=== PATIENT | female | born 1960 | race Caucasian/White ===

== ENCOUNTER → 2021-07-26 09:39 | Outpatient (BNVA) | payer MEDICAID, SELFPAY | PROVIDERS: Family Provider Nurse Practitioner Family; PCP Nurse Practitioner Family; Visit Provider Internal Medicine | DX: M25.50 Pain in unspecified joint (principal); R76.8 Other specified abnormal immunological findings in serum; F17.210 Nicotine dependence, cigarettes, uncomplicated | CPT/HCPCS: 99204 ==

== ENCOUNTER 2021-07-26 11:30 | Outpatient (CLI) | payer MEDICAID, SELFPAY ==
--- NOTE | 2021-07-26 11:42 | XR_ITS ---
WS: [email or web address] XR hand LT 2V [id number] REASON FOR EXAM: R76.8 - Other specified abnormal immunological findings i... FINDINGS: No fracture or focal bone lesion. Mild to moderate narrowing of the joint spaces with subchondral sclerosis and small marginal osteophy amy in the DIP and PIP joints of the fingers. Similar but more severe arthropathic change in the carp al metacarpal and the metacarpal phalangeal joint of the left thumb. Lateral subluxation at the metacarpal phalangeal joint of the thumb. No erosions or periosteal reaction. No soft tissue abnormality. XR/XR hand LT 2V [id number] IMPRESSION: Osteoarthritis of the left hand.
--- NOTE | 2021-07-26 11:42 | XR_ITS ---
WS: [email or web address] XR hand RT 2V [id number] REASON FOR EXAM: R76.8 - Other specified abnormal immunological findings i... FINDINGS: No fracture or focal bone lesion. Mild narrowing of the DIP and PIP joints of the right fingers with subchondral sclerosis and small ma rginal osteophytes. Similar arthropathy in the carpal metacarpal joint and the metacarpal phalangeal joint of the right thumb. No erosions or periosteal reaction. No soft tissue abnormality. XR/XR hand RT 2V [id number] IMPRESSION: Osteoarthritis right hand.
--- NOTE | 2021-07-26 11:42 | XR_ITS ---
WS: [email or web address] XR sacroiliac jts m 3V [id number] REASON FOR EXAM: L40.9 - Psoriasis, unspecified FINDINGS: No fracture or focal bone lesion. Sacroiliac joints are intact without erosions or areas of bridging or fusion. Minimal periarticular s clerosis. Moderate osteoarthritis of both hip joints. XR/XR sacroiliac jts m 3V [id number] IMPRESSION: No definite sacroiliitis.
[2021-07-26 12:58] LABS: Basophils # 0.1 10^3/uL (0.0-0.1); Basophils % 0.6 %; Eosinophils # 0.4 10^3/uL (0.0-0.8); Eosinophils % 4.6 %; Hemoglobin 12.8 g/dL (11.5-15.3); Lymphocytes # 3.7 10^3/uL (0.8-4.8); Lymphocytes % 39.4 %; Mean Corpuscular HGB Conc 32.8 g/dL (30.0-36.0); Mean Corpuscular Hemoglobin 30.3 pg (28.0-34.0); Mean Corpuscular Volume 92.2 fl (81-99); Mean Platelet Volume 10.2 fL (7.4-10.4); Monocytes # 0.5 10^3/uL (0.2-0.9); Monocytes % 5.3 %; Neutrophils # 4.63 10^3/uL (1.8-7.7); Neutrophils % 49.9 %; Nucleated Red Blood Cells % 0 %; Platelet Count 364 10^3/cmm (130-400); Red Blood Count 4.23 10^6/uL (4.1-5.3); Red Cell Distribution Width 12.4 % (12.1-15.1); White Blood Count 9.3 10^3/uL (4.0-10.0)
[2021-07-26 13:21] LABS: Alanine Aminotransferase 26 U/L (0-33); Albumin Level 4.3 g/dL (3.5-5.2); Alkaline Phosphatase 131 IU/L (35-105); Aspartate Amino Transferase 33 U/L (0-32); Blood Urea Nitrogen 10 mg/dL (8-23); Calcium 8.6 mg/dL (8.5-10.5); Carbon Dioxide 25 mmol/L (22-29); Chloride 103 mmol/L (98-107); Globulin 2.5 g/dL (1.3-4.6); Glomerular Filtration Rate 85.4 mL/min (90-130); Glucose 95 mg/dL (65-115); Osmolality Calculated 287 mOsm/kg (285-295); Sodium 139 mmol/L (136-145); Total Bilirubin 0.3 mg/dL (0.15-1.2); Total Protein 6.8 g/dL (6.6-8.7)
[2021-07-26 13:35] LABS: Erythrocyte Sedimentation Rate 19 mm/hr (0-15)
[2021-07-26 13:56] LABS: Hepatitis B Core AB, Total Non-Reactive (Nonreactive); Hepatitis B Surface Antigen Non-Reactive (Nonreactive); Hepatitis C Virus Antibody Non-Reactive (Nonreactive)
[2021-07-27 11:38] LABS: COMPLEMENT COMPONENT C3C 176 mg/dL (83-193); COMPLEMENT COMPONENT C4C 28 mg/dL (15-57)
[2021-07-27 12:57] LABS: CENTROMERE B ANTIBODY <1.0 NEG AI (<1.0 NEG); JO-1 ANTIBODY <1.0 NEG AI (<1.0 NEG); RNP ANTIBODY <1.0 NEG AI (<1.0 NEG); SCL-70 ANTIBODY 2.7 POS AI (<1.0 NEG); SJOGREN'S ANTIBODY (SS-A) <1.0 NEG AI (<1.0 NEG); SM ANTIBODY <1.0 NEG AI (<1.0 NEG); SS-B <1.0 NEG AI (<1.0 NEG)
[2021-07-27 14:43] LABS: THYROID PEROXIDASE ANTIBODIES 10 IU/mL (<9)
[2021-07-28 12:38] LABS: COMPLEMENT, TOTAL (CH50) >60 U/mL (31-60)
[2021-07-28 14:47] LABS: Quantiferon Mitogen >10.00 IU/mL; Quantiferon Nil 0.02 IU/mL; Quantiferon Plus TB1 0.01 IU/mL; Quantiferon Plus TB2 0.01 IU/mL; Quantiferon TB Gold NEGATIVE (NEGATIVE)
[2021-07-28 16:06] LABS: ANA PATTERN Nuclear, Speckled; ANA SCREEN, IFA POSITIVE (NEGATIVE); ANA TITER 1:40 titer
[2021-07-29 11:22] LABS: DNA AB (DS) CRITHIDIA,IFA NEGATIVE (NEGATIVE)
== END 2021-07-26 11:31 | disposition home or self-care (01) ==
LOC: RAD 11:36
PROVIDERS: Visit Provider Internal Medicine
DX: R76.8 Other specified abnormal immunological findings in serum (principal); L40.9 Psoriasis, unspecified; Z11.59 Encounter for screening for other viral diseases; Z11.1 Encounter for screening for respiratory tuberculosis
CPT/HCPCS: 36415; 72202; 73120; 80053; 85025; 85651; 86160; 86162; 86235; 86255; 86376; 86480; 86704; 86803; 87340

== ENCOUNTER → 2021-08-09 13:27 | Outpatient (BNVA) | payer MEDICAID, SELFPAY | PROVIDERS: Visit Provider Internal Medicine | DX: R76.8 Other specified abnormal immunological findings in serum (principal); M54.2 Cervicalgia; M25.50 Pain in unspecified joint; R06.00 Dyspnea, unspecified; F17.210 Nicotine dependence, cigarettes, uncomplicated | CPT/HCPCS: 99214 ==

== ENCOUNTER 2021-11-08 14:11 | Outpatient (CLI) | payer MEDICAID, SELFPAY ==
--- NOTE | 2021-11-08 14:18 | XR_ITS ---
WS: [email or web address] Lateral views of cervical spine in the flexion, extension and neutral positions. 11/08/2021 Clinical Data: M25.50 - Pain in unspecified joint Comparison: None. Findings: There is anterior osteophyte formation at C4, C5, C6 and C7. There is a subluxation of C4 on C5 of 0. 2 cm. There is no prevertebral soft tissue swelling. On flexion and extension there is no limitation of motion or change in the subluxation. No compression fractures are seen. XR/XR cervical spine fl/ex [id number] Impression: 1. Anterior osteophytes C4-C7. 2. 0.2 cm subluxation of C4 on C5. 3. Negative for limitation of motion or change in the subluxation on flexion or extension.
--- NOTE | 2021-11-08 14:26 | MM_ITS ---
WS: [id number] BILATERAL 3D TOMOSYNTHESIS DIGITAL SCREENING MAMMOGRAPHY WITH CAD CLINICAL INFORMATION: SCREENING HISTORY: Screening mammogram. No current complaints. COMPARISON: None. TECHNIQUE: Bilateral CC and MLO views. FINDINGS: Scattered fibroglandular densities bilaterally. Punctate and lucent centered calcifications. Numerous tiny scattered punctate calcifications RIGHT breast. A few clustered calcifications. No suspicious f ocal mass, asymmetry, calcifications, or architectural distortion. No evidence of malignancy. MM/[place] [id number] IMPRESSION: BI-RADS: 2-Benign FOLLOW UP: 1 Year Follow-up Recommend return to annual screening mammography.
== END 2021-11-08 14:12 | disposition home or self-care (01) ==
LOC: RADSHAW 14:13
PROVIDERS: Visit Provider Family Medicine
DX: Z12.31 Encounter for screening mammogram for malignant neoplasm of breast (principal); M25.50 Pain in unspecified joint; M54.2 Cervicalgia; R76.8 Other specified abnormal immunological findings in serum; Z79.899 Other long term (current) drug therapy; M25.78 Osteophyte, vertebrae
CPT/HCPCS: 72040; 77063; 77067

== ENCOUNTER 2021-11-13 12:12 | Outpatient (CLI) | payer MEDICAID, SELFPAY ==
[2021-11-13 12:59] LABS: Basophils # 0.1 10^3/uL (0.0-0.1); Basophils % 0.7 %; Eosinophils # 0.3 10^3/uL (0.0-0.8); Eosinophils % 4.5 %; Hematocrit 40.2 % (37.0-47.0); Hemoglobin 12.8 g/dL (11.5-15.3); Lymphocytes # 2.3 10^3/uL (0.8-4.8); Lymphocytes % 33.7 %; Mean Corpuscular HGB Conc 31.8 g/dL (30.0-36.0); Mean Corpuscular Hemoglobin 29.4 pg (28.0-34.0); Mean Corpuscular Volume 92.2 fl (81-99); Mean Platelet Volume 9.8 fL (7.4-10.4); Monocytes # 0.5 10^3/uL (0.2-0.9); Monocytes % 6.8 %; Neutrophils # 3.63 10^3/uL (1.8-7.7); Nucleated Red Blood Cells % 0 %; Platelet Count 367 10^3/cmm (130-400); Red Blood Count 4.36 10^6/uL (4.1-5.3); Red Cell Distribution Width 12.4 % (12.1-15.1); White Blood Count 6.7 10^3/uL (4.0-10.0)
[2021-11-13 13:18] LABS: Erythrocyte Sedimentation Rate 18 mm/hr (0-15)
[2021-11-13 13:40] LABS: Alanine Aminotransferase 6 U/L (0-33); Alkaline Phosphatase 89 IU/L (35-105); Anion Gap 17.8 (5-19); Aspartate Amino Transferase 20 U/L (0-32); Blood Urea Nitrogen 11 mg/dL (8-23); C Reactive Protein 8.8 mg/L (0.0-4.9); Calcium 8.5 mg/dL (8.5-10.5); Carbon Dioxide 24 mmol/L (22-29); Chloride 105 mmol/L (98-107); Globulin 2.6 g/dL (1.3-4.6); Glomerular Filtration Rate 72.9 mL/min (90-130); Glucose 98 mg/dL (65-115); Osmolality Calculated 293 mOsm/kg (285-295); Potassium 4.8 mmol/L (3.5-5.1); Sodium 142 mmol/L (136-145); Total Bilirubin 0.2 mg/dL (0.15-1.2); Total Protein 6.6 g/dL (6.6-8.7)
== END 2021-11-13 12:13 | disposition home or self-care (01) ==
PROVIDERS: Visit Provider Internal Medicine
DX: M54.2 Cervicalgia; R76.8 Other specified abnormal immunological findings in serum; Z79.899 Other long term (current) drug therapy; M79.643 Pain in unspecified hand; F17.210 Nicotine dependence, cigarettes, uncomplicated
CPT/HCPCS: 80053; 85025; 85651; 86140; 99213; 99214

== ENCOUNTER 2023-12-20 20:55 | Emergency (ER) | payer MEDICAID, SELFPAY ==
[2023-12-20 21:09] VITALS: BP 154/77; PULSE 64; RESP 18; TEMP 36.6; O2SAT 98; BMI 32.1
--- NOTE | 2023-12-20 21:56 | CTR_ITS ---
PROCEDURE INFORMATION: Exam: CT Neck With Contrast Exam date and time: 12/20/2023 11:08 PM Age: 63 years old Clinical indication: Neck pain and other: RT ear pain; Patient HX: C/O RT sided ear pain that radiates to base of occiput and neck; Additional info: Left posterior ear pain/left neck pain TECHNIQUE: Imaging protocol: Computed tomography of the neck with contrast. Radiation optimization: All CT scans at this facility use at least one of these dose optimization techniques: automated exposure control; mA and/or kV adjustment per patient size (includes targeted exams where dose is matched to clinical indication); or iterative reconstruction. Contrast material: OMNI 350; Contrast volume: 100 ml; Contrast route: INTRAVENOUS (IV); COMPARISON: CR XR cervical spine fl/ex [id number] 11/08/2021 2:24 PM RADIATION DOSE METRICS: Total DLP (mGy-cm): 325.03 FINDINGS: Brain: Partially imaged CSF density at the posteromedial aspect of the left lobe of the cerebellum is most compatible with an arachnoid cyst. Salivary glands: Salivary gland size is within normal limits of variation. Pharynx: Grossly unremarkable. No significant tonsillar enlargement. Prevertebral and retropharyngeal spaces: Grossly unremarkable. Larynx: Grossly unremarkable. Epiglottis is normal. Thyroid: No enlarged or calcified nodules. Trachea: Visualized trachea is unremarkable. Lungs: Unremarkable as visualized. Lymph nodes: By size criteria, no radiographically significant lymphadenopathy is identified. Vasculature: Atheromatous changes at the carotid bulbs (right greater than left) appears to result in mild (less than 50%) stenosis bilaterally. Bones/joints: No acute fracture. Cervical spondylosis resulting in up to moderate to severe stenosis of the neural foramina and minimal spinal canal stenosis, most pronounced at C5-C6. Soft tissues: Grossly unremarkable. CT/CT neck w con* [id number] IMPRESSION: 1. No acute findings. 2. Cervical spondylosis and other chronic/incidental findings as described above.
--- NOTE | 2023-12-20 22:00 | ED_ITS ---
HPI - Ear Problem 2 General: Chief complaint: Ear Stated complaint: EAR PAIN Time Seen by Provider: 12/20/23 21:16 Source: patient Mode of arrival: ambulatory Limitations: no limitations History of Present Illness: Patient is a 63-year-old female who presents to the emergency department complaining of left posterior ear pain onset 4 hours. Patient states she woke from a nap at approximately 1800 today, when she had the sudden onset of pain. It has been intermittent since onset, though she states that episodes are starting to become longer in duration. She initially was seen for the pain in [place] emergency department, states she was just given a shot of Toradol and left AMA as they were not seeing her quick enough. She denies any recent sinus infections, drainage from her ear, fevers, nausea or vomiting, or other symptoms at this time. She does note that the pain is starting to radiate down into her left neck. She has never had this pain before in the past. No history of allergies reported. MD Complaint: other (Posterior ear pain) Location: left ear Duration: intermittent Severity: severe Relieving factors: nothing Exacerbating factors: nothing Discharge from ear: no Associated symptoms: Reports neck pain; Denies fever(s) or headache(s) Review of Systems 2 General: Reports: 10 or more systems reviewed and unremarkable except in HPI and below Const: Denies: fever(s), chills or fatigue Eyes: Denies: change in vision ENMT: Reports: other (Left posterior ear pain); Denies: throat pain, ear discharge or nasal discharge Card: Denies: chest pain, palpitations, swelling of feet/ankles or lightheadedness Resp: Denies: dyspnea, productive cough or wheezing GI: Denies: abdominal pain, nausea, vomiting, diarrhea or constipation : Denies: flank pain, difficulty voiding, dysuria or urinary frequency Musc: Reports: neck pain; Denies: back pain or joint pain Skin/Breast: Denies: rash Neuro: Denies: headache(s), numbness in extremities or weakness in extremities PFSH ED 2 PFSH: Medical History Cervicalgia Family History Father Cancer Diabetes Hypertension Heart attack Rheumatoid arthritis Grandfather Cancer Diabetes Grandmother Diabetes Brother Diabetes Hypertension Heart attack Brother Diabetes Brother Diabetes Sister Diabetes Mother Hyperlipidemia Hypertension Family/Other Rheumatoid arthritis Denies family history of Lupus Stroke Social History Smoking and tobacco/nicotine status: current every day tobacco/nicotine user cigarettes Alcohol intake: former Physical Exam 2 Const: COMMON NORMALS: no acute distress, patient oriented x3 and no limitations GENERAL APPEARANCE: cooperative, comfortable and well developed ORIENTATION/CONSCIOUSNESS: Yes awake, Yes oriented to person, Yes oriented to place and Yes oriented to time HENMT: COMMON NORMALS: normocephalic, atraumatic, hearing grossly normal bilaterally, external ears normal, EAC's normal, TM's normal bilaterally, Normal external nose present and Normal nasal mucous membranes and turbinates present HEAD & SCALP: normocephalic and atraumatic FACE & SINUS: normal facial exam, sinuses nontender and face symmetric NOSE: Normal external nose present and Normal nasal mucous membranes and turbinates present EXTERNAL EAR: Yes external ears normal, Yes mastoid abnormal (Left mastoid tender to palpation) and Yes no periauricular adenopathy EXTERNAL AUDITORY CANAL: EAC's normal TYMPANIC MEMBRANE: TM's normal bilaterally MOUTH: Normal oral and palatal mucosa present THROAT: posterior oropharynx normal Eye: COMMON NORMALS: Equal, round and reactive pupils present, EOMs intact bilaterally and conjunctivae normal CONJUNCTIVA: Yes conjunctivae normal P UPIL: Yes Equal, round and reactive pupils present Neck/C-Spine: COMMON NORMALS: full ROM and no lymphadenopathy OTHER: Left lateral neck tender to palpation along the SCM Resp: COMMON NORMALS: normal respiratory effort, No retractions, No use of accessory muscles and clear to auscultation bilaterally AUSCULTATION: clear to auscultation bilaterally Cardio: COMMON NORMALS: regular rate, regular rhythm, No clicks present (Cardio), No murmurs present (Cardio) and No rub (Cardio) RATE: regular rate RHYTHM: regular rhythm Extremity: COMMON NORMALS: normal to inspection, full ROM and capillary refill normal Neuro: COMMON NORMALS: patient oriented x3, moves all extremities, no focal motor deficits and no sensory deficits noted SENSORIUM/ORIENTATION: Yes oriented to person, Yes oriented to place and Yes oriented to time Psych: COMMON NORMALS: mental status grossly normal and Normal thought process present THOUGHT PROCESS: Normal thought process present Skin: COMMON NORMALS: no rashes or lesions noted GENERAL SKIN EXAM: no rashes or lesions noted Course 2 Vital Signs: Vital signs: Vital Signs Temperature 97.9 F 12/20/23 21:09 Pulse Rate 64 12/20/23 21:09 Respiratory Rate 18 12/20/23 21:09 Blood Pressure 154/77 12/20/23 21:09 Pulse Oximetry 98 12/20/23 21:09 Oxygen Delivery Me thod Room Air 12/20/23 21:09 MDM - Ear Medical Decision Making Patient presented for acute onset of left posterior ear pain. Initially seen at [facility] but left because she was not being seen fast enough. She arrives stating that the pain is significantly worsening, however her vitals unremarkable and her condition has remained stable throughout the ED course. However, she did demonstrate some tenderness to palpation about the mastoid, so a neck CT was ordered to rule this out. She did have some tenderness to palpation about the left lateral neck as well. At this time I believe patient's pain likely muscular in nature, potentially a cervical strain versus myositis. She does note relief of the pain after receiving steroid shot, will send home prescription for prednisone as well as muscle relaxer. She will follow-up with primary care with any further complaints, and return precautions were given. Patient will take Tylenol/ibuprofen at home for pain. Lab Data 12/20/23 22:24 12/20/23 22:[address] 12/20/23 21:56 IMPRESSION: 1. No acute findings. 2. Cervical spondylosis and other chronic/incidental findings as described above. Laboratory Results WBC 7.99 10^3/uL (3.29-11.43) 12/20/23 22:24 RBC 4.08 10^6/uL (3.85-5.65) 12/20/23 22:24 Hgb 11.80 g/dL (11.27-16.99) 12/20/23 22:24 Hct 37.2 % (36-47) 12/20/23 22:24 MCV 91.2 fl (85-98) 12/20/23 22:24 MCH 28.9 pg (27-33) 12/20/23 22: MCHC 31.7 g/dL (30-55) 12/20/23 22:24 RDW 13.4 % (12.1-15.1) 12/20/23 22:24 Plt Count 370 10^3/cmm (157-399) 12/20/23 22:24 MPV 10.2 fL (7.4-10.4) 12/20/23 22:24 Neut % (Auto) 43.7 % 12/20/23 22:24 Lymph % (Auto) 43.2 % 12/20/23 22:24 [place] % (Auto) 6.4 % 12/20/23 22:24 Eos % (Auto) 5.6 % 12/20/23 22:24 Baso % (Auto) 0.8 % 12/20/23 22:24 Neut # (Auto) 3.50 10^3/uL (1.8-7.7) 12/20/23 22:24 Lymph # (Auto) 3.5 10^3/uL (0.8-4.8) 12/20/23 22:24 [place] # (Auto) 0.5 10^3/uL (0.2-0.9) 12/20/23 22:24 Eos # (Auto) 0.5 10^3/uL (0.0-0.8) 12/20/23 22:24 Baso # (Auto) 0.1 10^3/uL (0.0-0.1) 12/20/23 22:24 Nucleated RBC % (auto) 0 % 12/20/23 22:24 Nucleated RBCs # 0.0 /100WBC 12/20/23 22:24 Sodium 140 mmol/L (136-145) 12/20/23 22:24 Potassium 4.2 mmol/L (3.5-5.1) 12/20/23 22:24 Chloride 105 mmol/L (98-107) 12/20/23 22:24 Carbon Dioxide 26 mmol/L (22-29) 12/20/23 22:24 Anion Gap 13.2 (5-19) 12/20/23 22:24 BUN 11 mg/dL (8-23) 12/20/23 22:24 Creatinine 0.7 mg/dL (0.5-0.9) 12/20/23 22:24 GFR Calculation 84.5 mL/min (90-130) L 12/20/23 22:24 Glucose 98 mg/dL (65-115) 12/20/23 22:24 Calculated Osmolality 289 mOsm/kg (285-295) 12/20/23 22:24 Calcium 9.0 mg/dL (8.5-10.5) 12/20/23 22:24 Total Bilirubin 0.2 mg/dL (0.15-1.2) 12/20/23 22:24 AST 26 U/L (0-32) 12/20/23 22:24 ALT 9 U/L (0-33) 12/20/23 22:24 Alkaline Phosphatase 97 U/L (35-105) 12/20/23 22:24 Total Protein 6.9 g/dL (6.6-8.7) 12/20/23 22:24 Albumin 3.9 g/dL (3.5-5.2) 12/20/23 22:24 Globulin 3.0 g/dL (1.3-4.6) 12/20/23 22:24 All radiology interpretation(s) finalized by discharge Discharge Plan Discharge Patient Disposition: Home Clinical Impression: Neck strain Qualifiers: Encounter type: initial encounter Qualified Code(s): S16.1XXA - Strain of muscle, fascia and tendon at neck level, initial encounter Condition: Stable Prescriptions: New methocarbamol 750 mg tablet 750 mg PO Q8H 5 Days Qty: 15 0RF prednisone 20 mg tablet 60 mg PO ONCE 5 Days Qty: 15 0RF No Action atenolol 50 mg tablet 50 mg PO BID amlodipine 5 mg tablet 5 mg PO DAILY Rx Instructions: 0.5-1 tab daily rosuvastatin 20 mg tablet 20 mg PO DAILY acetaminophen [Tylenol Arthritis Pain] 650 mg tablet extended release 1,300 mg PO DAILY ascorbic acid (vitamin C) 1,000 mg tablet 1 g PO DAILY vitamin B complex [B Complex-Vitamin B12] Tablet 1 tab PO DAILY diclofenac sodium [Voltaren Arthritis Pain] 1 % gel 4 g topical QID Qty: 100 2RF Rx Instructions: apply to single knee, ankle, foot; for foot includes sole/toes/top of foot meloxicam 15 mg tablet 15 mg PO DAILY Qty: 30 2RF hydroxychloroquine 200 mg tablet 200 mg PO BID Qty: 60 3RF Discharge Orders: Discharge ED (Routine); Ordered 12/21/23 Ordered By: Stanley Phelan Discharge Diet: Usual diet Discharge Activity: Increase activity as tolerated Patient Instructions: Cervical Strain (ED) Activity Restrictions/Additional Instructions: Take medications as prescribed. Gentle range of motion as tolerated. Ice to the area for added relief. Tylenol/ibuprofen at home for pain. Follow-up with your primary care provider. Coding Level of Care Code ED [facility] Professional for Lety Negrete
[2023-12-20] MEDS: HYDROcodone-acetaminophen 7.5-325 mg Tablet 1 TAB PO (22:05)
[2023-12-20] MEDS: dexamethasone 10 mg/mL INJ IVP (22:10)
[2023-12-20 22:32] LABS: Basophils # 0.1 10^3/uL (0.0-0.1); Basophils % 0.8 %; Eosinophils # 0.5 10^3/uL (0.0-0.8); Eosinophils % 5.6 %; Hematocrit 37.2 % (36-47); Lymphocytes # 3.5 10^3/uL (0.8-4.8); Lymphocytes % 43.2 %; Mean Corpuscular HGB Conc 31.7 g/dL (30-55); Mean Corpuscular Hemoglobin 28.9 pg (27-33); Mean Corpuscular Volume 91.2 fl (85-98); Mean Platelet Volume 10.2 fL (7.4-10.4); Monocytes # 0.5 10^3/uL (0.2-0.9); Monocytes % 6.4 %; Neutrophils % 43.7 %; Nucleated Red Blood Cells % 0 %; Platelet Count 370 10^3/cmm (157-399); Red Blood Count 4.08 10^6/uL (3.85-5.65); Red Cell Distribution Width 13.4 % (12.1-15.1); White Blood Count 7.99 10^3/uL (3.29-11.43)
[2023-12-20 22:52] LABS: Alanine Aminotransferase 9 U/L (0-33); Albumin Level 3.9 g/dL (3.5-5.2); Alkaline Phosphatase 97 U/L (35-105); Anion Gap 13.2 (5-19); Aspartate Amino Transferase 26 U/L (0-32); Blood Urea Nitrogen 11 mg/dL (8-23); Carbon Dioxide 26 mmol/L (22-29); Chloride 105 mmol/L (98-107); Glomerular Filtration Rate 84.5 mL/min (90-130); Glucose 98 mg/dL (65-115); Osmolality Calculated 289 mOsm/kg (285-295); Potassium 4.2 mmol/L (3.5-5.1); Sodium 140 mmol/L (136-145); Total Bilirubin 0.2 mg/dL (0.15-1.2); Total Protein 6.9 g/dL (6.6-8.7)
[2023-12-20] MEDS: iohexol 350 mg/mL 500 mL Btl (per mL) IV (23:10)
[2023-12-21 00:40] VITALS: BP 162/84; PULSE 63; O2SAT 96
[2023-12-21 00:44] VITALS: BP 162/84; PULSE 63; O2SAT 96
== END 2023-12-21 00:44 | disposition home or self-care (01) ==
PROVIDERS: Emergency Provider Physician Assistant
DX: S16.1XXA Strain of muscle, fascia and tendon at neck level, initial encounter (principal); F17.210 Nicotine dependence, cigarettes, uncomplicated; X58.XXXA Exposure to other specified factors, initial encounter
CPT/HCPCS: 36415; 70491; 80053; 85025; 96374; 99285; J1100; Q9967

== ENCOUNTER 2024-06-04 15:05 | Outpatient (CLI) | payer MEDICAID, SELFPAY ==
--- NOTE | 2024-06-04 15:15 | MR_ITS ---
WS: [email or web address] MRI CERVICAL SPINE with and without contrast HISTORY: M48.00 - Spinal stenosis, site unspecified COMPARISON: None available. Technique: Multiplanar, multisequence noncontrast imaging of the cervical spine. Postcontrast C-spine MultiHance 16 cc. Straightening of the normal cervical lordosis. No fractures. Small amount of marrow edema in the LEFT articular facets of C7 and T1. Signal within the cervical cord is normal. Visualized posterior fossa is unremarkable. Craniocervical junction, C1 and C2 relationship, odontoid process and soft tissues are normal. C2-C3: Normal. C3-C4: Normal. C4-C5: Mild osteophytic ridging. No stenosis. Mild osteophytic ridging and annular disc bulging. Mild central, bilateral foraminal stenosis, LEFT greater than RIGHT. C5-C6: Mild osteophytic ridging with small foraminal osteophytes. Mild foraminal stenosis. C6-C7: Small central disc protrusion and osteophytosis. Very mild central and bilateral foraminal charli nosis. C7-T1: Very slight anterolisthesis of C7 by 2 mm. Mild disc bulging. Mild disc encroachment upon the ventral thecal sac. Mild central and bilateral foraminal stenosis. No discitis or osteomyelitis. No enhancing masses. Incidental note is made of an arachnoid cyst in th e posterior fossa. There is mild enhancement involving the facet joints of C6-7 and C7-T1. This is bilaterally but sligh tly greater on the LEFT. MR/MR cervical spine wo/w [id number] IMPRESSION: 1. No discitis or osteomyelitis. 2. Facet joint enhancement at C6-7 and C7-T1, bilateral but greatest on the LE FT. Probably due to synovitis. No fluid collection. 3. C4-5: Mild central and bilateral foraminal stenosis due to osteophyte and d isc disease. 4. C5-6: Mild foraminal stenosis. 5. C6-7: Mild central and bilateral foraminal stenosis with a small central di sc protrusion. 6. C7-T1: Slight anterolisthesis of C7 by 2 mm. Mild central and bilateral for aminal stenosis.
[2024-06-04] MEDS: gadobenate dimeglumine 20 mL vial 16 ML IV (15:47)
== END 2024-06-04 15:06 | disposition home or self-care (01) ==
LOC: RAD 15:07
PROVIDERS: PCP Family Medicine; Visit Provider Psychiatry & Neurology Neurology
DX: M47.892 Other spondylosis, cervical region (principal); M25.78 Osteophyte, vertebrae
CPT/HCPCS: 72156